=== PATIENT | male | born 1945 | race Caucasian/White ===

== ENCOUNTER 2022-03-11 10:11 | Emergency (ER) | payer OTHER ==
--- OUTSIDE RECORDS SUMMARY | 2022-03-11 10:13 | XMS REPORT | Continuity of Care Document ---
:1945 Author Organization [facility] t Address [address] [place] [address] Care Team Providers Name Role Phone Dann Mims MD Primary Care Physician JOSE M COLE Attending Clinician Unavailable JASBIR JUSTIN Attending Clinician Unavailable MARKY AUGUSTINE Attending Clinician Unavailable Problems Condition Condition Condition Status Onset Resolution Last Treating Co mments Source Name Details Category Date Date Treatment Clinician Date No known No known Disease Metho di active active st problems problems Hospit a l Allergies, Adverse Reactions, Alerts This patient has no known allergies or adverse reactions. Family History Family Member Diagnosis Comments Start Date Stop Date Source Family member Colon cancer [facility] Family member Colon polyps [facility] Social History Social Habit Start Date Stop Date Quantity Comments Source History of Current smoker [facility] Alcohol intake 2020-06-08 2020-06-08 Ex-drinker [facility] (finding[facility] Tobacco use and 2020-03-01 2020-03-01 Smokeless tobacco [facility] 00:[facility]:00 non-user Hospital Alcohol Comment 2020-03-01 2020-03-01 off an on use [facility] 00:[facility] 00:00:00 (currently off) Hospital Sex Assigned At [birth year] M [facility] 00:[facility] Smoking Status Start Date Stop Date Source Ex-smoker 2020-03-01 00:00:00 2020-03-01 [facility]:00:[facility] Medications Ordered Filled Start Stop Current Ordering Indication Dosage Frequency Signature Comments Components Source Medication Medication Date Date Medication? Clinician (SIG) Name Name ciprofloxac Yes 500mg QD Take 500 M [facility] in (CIPRO) 3-[address] 500 MG 16:14: mouth Hospita tablet 38 daily. l ascorbic Yes QD Take by [facility] acid, 3-[address] vitamin C, 16:13: daily. Hospi ta (vitamin C) 40 l 1000 MG tablet aspirin Yes [facility] (ASPIR-81 3-08 st ORAL) 16:13: Hospita 40 l buPROPion Yes 300mg QD Take 300 [facility] HBr 348 mg 3-[address] tablet 16:13: mouth [facility] extended 40 daily. l release 24 hr cetirizine Yes [facility] (ZyrTEC) 10 3-08 st MG tablet 16:13: Hospita 40 l multivit-mi Yes Method i n/FA/lycope 3-08 st n/lutein 16:13: Hospita (CENTRUM 40 l SILVER MEN ORAL) zinc Yes [facility] gluconate 3-08 st 50 mg 16:13: Hospita tablet 40 l zolpidem Yes 10mg QD Take 10 mg Met hodi (AMBIEN) 10 3-[address] mg tablet 16:13: nightly as Ho spita 40 needed. l propranoloL 2019-04 Yes TAKE 1 TO M ethodi (INDERAL) 2-[address] 10 MG 00:00: BY MOUTH Hospita tablet 00 UP TO 3 l TIMES A DAY NEEDED FOR TREMORS ezetimibe 2019-04 Yes 10mg QD Take 10 mg Me thodi (ZETIA) 10 1-[address] mg tablet 00:00: daily. Hospit a 00 l rosuvastati 2019-04 Yes TAKE 1 Meth kelly n (CRESTOR) 1-[address] 5 mg tablet 00:00: MOUTH Hospi ta 00 DAILY IN l EVENING carvediloL 2019-04 Yes 25mg Q.5D Take 25 mg M ethodi (COREG) 25 0-[address] MG tablet 00:00: (two) Hospita 00 times a l day. finasteride 2019-04 Yes 5mg QD Take 5 mg M [facility]i (PROSCAR) 5 0-[address] mg tablet 00:00: daily. Hospit a 00 l Procedures This patient has no known procedures. Plan of Care Planned Activity Planned Date Details Comments Source Future Scheduled 2022-02-01 HEPATITIS B VACCINES Met [facility] Test 20:31:51 (1 of 3 - 3-dose series) [code = HEPATITIS B VACCINES (1 of 3 - 3-dose series)] Future Scheduled 2022-02-01 COVID-19 VACCINE (#1) [facility] Test 20:31:51 [code = COVID-19 VACCINE (#1)] Future Scheduled 2022-02-01 Hepatitis C screening [facility] Test 20:31:51 (procedure) [code = 738791198] Future Scheduled 2022-02-01 COLONOSCOPY SCREENING [facility] Test 20:31:51 [code = COLONOSCOPY SCREENING] Future Scheduled 2022-02-01 SHINGLES VACCINES (1 Met [facility] Test 20:31:51 of 2) [code = SHINGLES VACCINES (1 of 2)] Future Scheduled 2022-02-01 65+ P[facility]UMOCOCCAL [facility] Test 20:31:51 VACCINE (1 - PCV) [code = 65+ PNEUMOCOCCAL VACCINE (1 - PCV)] Future Scheduled 2022-02-01 INFLUENZA VACCINE [facility] Test 20:31:51 [code = INFLUENZA VACCINE] Encounters Start End Encounter Admission Attending Care Care Encounter Source Date/Time Date/Time Type Type Clinicians Facility Department ID 2020-08-19 2020-08-19 Outpatient ERGUN, [facility] [id number] [place] 00:00:00 00:00:[address] [place] [address] 2020-06-08 2020-06-08 Outpatient [facility] [id number] [place] 00:00:00 00:00:[address] 2020-06-04 2020-06-04 Emergency BOYINDIRADIGA [facility] [id number] [place] 00:00:00 00:00:00 [place], [address] 2020-03-01 2020-03-01 Outpatient MARKY AUGUSTINE [facility] [id number] [place] 00:00:00 00:00:[address] Results This patient has no known results.
[2022-03-11] MEDS ORDERED: ASPIRIN 81 MG CHEWABLE TABLET ONE (10:29)
[2022-03-11 11:05] LABS: Absolute Lymphocytes (CBC) 1.4 K/uL (0.7-4.9); Hematocrit 40.2 % (39.6-49.0); Lymphocytes % 29.2 % (15.3-44.8); MPV 7.9 fL (7.6-11.3); RBC Red Blood Cell Count 4.18 M/uL (4.33-5.43)
[2022-03-11 11:09] LABS: Protime INR 1.06
[2022-03-11 11:22] LABS: Albumin 3.9 g/dL (3.4-5.0); Bilirubin Direct 0.1 mg/dL (0-0.2); Bilirubin Total 0.4 mg/dL (0.2-1.0); Magnesium 2.2 mg/dL (1.6-2.4); Potassium 3.8 mmol/L (3.5-5.1); Protein, Total 6.9 g/dL (6.4-8.2); Troponin High Sensitivity 6.5 pg/mL (<58.9)
--- NOTE | 2022-03-11 11:26 | RAD REPORT ---
EXAM DESCRIPTION: RAD - Chest Single View - 03/11/2022 11:18 am CLINICAL HISTORY: CHEST PAIN COMPARISON: none FINDINGS: Lines: None. Lungs: No evidence of edema or pneumonia. Pleural: No significant pleural effusions or pneumothorax. Cardiac: The heart size is within normal limits. Mediastinum: Within normal limits. Bones: No acute fractures. Other: None IMPRESSION: No acute cardiopulmonary disease.
--- NOTE | 2022-03-11 12:39 | ER ---
Nurse's Notes [facility] Name: Joe Grayson Age: 76 yrs Sex: Male : 1945 Arrival Date: 03/11/2022 Time: 10:12 Bed 24 Private MD: Bill Mims C Diagnosis: Chest pain, unspecified Presentation: 03/11 10:18 Chief complaint: Patient states: my is on 2nd floor and i was listening to the doctor and i started feeling dizzy and sweaty and a mild pain in my chest and now I have a pain in my abdomen , my 's been in the hospital for a couple days and I havent been eating much. Coronavirus screen: At this time, the client does not indicate any symptoms associated with coronavirus-19. Ebola Screen: Patient negative for fever greater than or equal to 101.5 degrees Fahrenheit, and additional compatible Ebola Virus Disease symptoms Patient denies exposure to infectious person. Patient denies travel to an Ebola-affected area in the 21 days before illness onset. No symptoms or risks identified at this time. Initial Sepsis Screen: Does the patient meet any 2 criteria? No. Patient's initial sepsis screen is negative. Does the patient have a suspected source of infection? No. Patient's initial sepsis screen is negative. Risk Assessment: Do you want to hurt yourself or someone else? Patient reports no desire to harm self or others. Onset of symptoms was March 11, 2022. 10:18 Method Of Arrival: Wheelchair 10:18 Acuity: OFE 3 iw Historical: - Allergies: 10:20 No Known Allergies; iw - PMHx: 10:20 Hyperlipidemia; Hypertension; Depressive disorder; iw - PSHx: 10:20 cataract; iw - Immunization history:: Client reports receiving the 2nd dose of the Covid vaccine. - Social history:: Smoking status: Patient/guardian denies using tobacco, the patient reports quitting approximately 30 years ago. - Family history:: not pertinent. Screenin:38 Abuse screen: Denies threats or abuse. Denies injuries from another. Nutritional ko1 screening: No deficits noted. Tuberculosis screening: No symptoms or risk factors identified. Fall Risk None identified. Assessment: 10:38 General: Appears in no apparent distress. comfortable, Behavior is calm, cooperative, ko1 appropriate for age, Denies fever, feeling ill, fatigue, chills. Pain: Complains of pain in abdomen Pain does not radiate. Pain began suddenly. Neuro: No deficits noted. Cardiovascular: Reports having chest pain earlier but now its more abdominal Denies chest pain. Respiratory: No deficits noted. GI: Reports upper abdominal pain. : No deficits noted. EENT: No deficits noted. Derm: No deficits noted. Musculoskeletal: No deficits noted. Vital Signs: 10:18 BP 110 / 52; Pulse 51; Resp 16; Temp 97.0; Pulse Ox 100% on R/A; Weight 74.84 kg; iw Height 5 ft. 8 in. (172.72 cm); Pain 3/10; 10:38 BP 124 / 69; Pulse 54; Resp 18; Pulse Ox 97% on R/A; ko1 11:47 BP 124 / 75; Pulse 59; Pulse Ox 100% ; ko1 12:27 BP 137 / 64; Pulse 57; Resp 16; Pulse Ox 99% on R/A; ko1 10:18 Body Mass Index 25.09 (74.84 kg, 172.72 cm) iw Vitals: 10:38 Cardiac Rhythm Assessment Sinus lópez. ko1 ED Course: 10:12 Patient arrived in ED. am2 10:12 Bill Mims MD is Private Physician. am2 10:18 Saad Rod MD is Attending Physician. rt 10:20 Triage completed. iw 10:21 Arm band placed on. iw 10:23 Razia Louis, RN is Primary Nurse. ko1 10:38 Patient has correct armband on for positive identification. Placed in gown. Bed in low ko1 position. Call light in reach. Side rails up X 1. Client placed on continuous cardiac and pulse oximetry monitoring. NIBP monitoring applied. gasoline service attendant on. Door closed. Noise minimized. Lights dimmed. Warm blanket given. 10:38 Patient maintains SpO2 saturation greater than 95% on room air. ko1 10:55 Missed attempt(s): 20 gauge in left antecubital area. rs5 11:00 Inserted saline lock: 20 gauge in right antecubital area, using aseptic technique. ko1 Blood collected. 11:03 Basic Metabolic Panel Sent. ko1 11:03 CBC with Diff Sent. ko1 11:03 LFT's Sent. ko1 11:03 Magnesium Sent. ko1 11:03 NT PRO-BNP Sent. ko1 11:03 PT-INR Sent. ko1 11:03 Troponin HS Sent. ko1 11:20 XRAY Chest (1 view) In Process Unspecified. EDMS 12:27 No provider procedures requiring assistance completed. ko1 12:38 Bill Mims MD is Referral Physician. rt 12:48 IV discontinued, intact, bleeding controlled, No redness/swelling at site. Pressure ko1 dressing applied. Administered Medications: 10:33 Drug: Aspirin Chewable Tablet 324 mg Route: PO; ko1 Medication: 11:47 VIS not applicable for this client. ko1 Outcome: 12:39 Discharge ordered by MD. rt 12:48 Discharged to home ambulatory. ko1 12:48 Condition: stable 12:48 Discharge instructions given to patient, Instructed on discharge instructions, follow up and referral plans. Demonstrated understanding of instructions, follow-up care. 12:49 Patient left the ED. ko1 Signatures: Dispatcher [employer] EDMS Ameena Masterson RN RN iw Cesilia Teague am2 Razia Louis RN RN ko1 Saad Rod MD MD rt Ryan Aquino rs5
--- NOTE | 2022-03-11 12:39 | EDPHYS ---
Physician Documentation [facility] Name: Joe Grayson Age: 76 yrs Sex: Male : 1945 Arrival Date: 03/11/2022 Time: 10:12 Bed 24 Private MD: Bill Mims C ED Physician Saad Rod HPI: 03/11 12:01 This 76 yrs old Male presents to ER via Wheelchair with complaints of Chest Pain, rt Dizziness, sweats. 12:01 The patient or guardian reports chest pain that is located primarily in the substernal rt area. Onset: acutely, just prior to arrival. The pain does not radiate. Associated signs and symptoms: Pertinent positives: diaphoresis, dizziness, nausea. The chest pain is described as a pressure. Duration: The patient or guardian reports a single episode, that is still ongoing, but improving. Modifying factors: The symptoms are alleviated by nothing. the symptoms are aggravated by nothing. Severity of pain: At its worst the pain was moderate. Historical: - Allergies: 10:20 No Known Allergies; iw - PMHx: 10:20 Hyperlipidemia; Hypertension; Depressive disorder; iw - PSHx: 10:20 cataract; iw - Immunization history:: Client reports receiving the 2nd dose of the Covid vaccine. - Social history:: Smoking status: Patient/guardian denies using tobacco, the patient reports quitting approximately 30 years ago. - Family history:: not pertinent. ROS: 12:01 Constitutional: Negative for fever, chills, and weight loss, Eyes: Negative for injury, rt pain, redness, and discharge, ENT: Negative for injury, pain, and discharge, Neck: Negative for injury, pain, and swelling, Respiratory: Negative for shortness of breath, cough, wheezing, and pleuritic chest pain, MS/Extremity: Negative for injury and deformity, Skin: Negative for injury, rash, and discoloration, Neuro: Negative for headache, weakness, numbness, tingling, and seizure, Psych: Negative for depression, anxiety, suicide ideation, homicidal ideation, and hallucinations. 12:01 Cardiovascular: Positive for chest pain, Negative for edema. 12:01 Abdomen/GI: Positive for nausea, Negative for vomiting. 12:01 Skin: Positive for diaphoresis, Negative for cellulitis. Exam: 11:49 ECG was reviewed by the Attending Physician. rt 12:01 Constitutional: This is a well developed, well nourished patient who is awake, alert, rt and in no acute distress. Head/Face: Normocephalic, atraumatic. Eyes: Pupils equal round and reactive to light, extra-ocular motions intact. Lids and lashes normal. Conjunctiva and sclera are non-icteric and not injected. Cornea within normal limits. Periorbital areas with no swelling, redness, or edema. ENT: Nares patent. No nasal discharge, no septal abnormalities noted. Tympanic membranes are normal and external auditory canals are clear. Oropharynx with no redness, swelling, or masses, exudates, or evidence of obstruction, uvula midline. Mucous membranes moist. Neck: Trachea midline, no thyromegaly or masses palpated, and no cervical lymphadenopathy. Supple, full range of motion without nuchal rigidity, or vertebral point tenderness. No Meningismus. Chest/axilla: Normal chest wall appearance and motion. Nontender with no deformity. No lesions are appreciated. Cardiovascular: Regular rate and rhythm with a normal S1 and S2. No gallops, murmurs, or rubs. Normal PMI, no JVD. No pulse deficits. Respiratory: Lungs have equal breath sounds bilaterally, clear to auscultation and percussion. No rales, rhonchi or wheezes noted. No increased work of breathing, no retractions or nasal flaring. Abdomen/GI: Soft, non-tender, with normal bowel sounds. No distension or tympany. No guarding or rebound. No evidence of tenderness throughout. Skin: Warm, dry with normal turgor. Normal color with no rashes, no lesions, and no evidence of cellulitis. MS/ Extremity: Pulses equal, no cyanosis. Neurovascular intact. Full, normal range of motion. Neuro: Awake and alert, GCS 15, oriented to person, place, time, and situation. Cranial nerves II-XII grossly intact. Motor strength 5/5 in all extremities. Sensory grossly intact. Cerebellar exam normal. Normal gait. Psych: Awake, alert, with orientation to person, place and time. Behavior, mood, and affect are within normal limits. Vital Signs: 10:18 BP 110 / 52; Pulse 51; Resp 16; Temp 97.0; Pulse Ox 100% on R/A; Weight 74.84 kg; iw Height 5 ft. 8 in. (172.72 cm); Pain 3/10; 10:38 BP 124 / 69; Pulse 54; Resp 18; Pulse Ox 97% on R/A; ko1 11:47 BP 124 / 75; Pulse 59; Pulse Ox 100% ; ko1 12:27 BP 137 / 64; Pulse 57; Resp 16; Pulse Ox 99% on R/A; ko1 10:18 Body Mass Index 25.09 (74.84 kg, 172.72 cm) iw MDM: 10:23 Patient medically screened. rt 17:37 Differential diagnosis: acute myocardial infarction, acute pericarditis, pericarditis, rt pneumonia, pneumothorax, pulmonary embolus, thoracic aortic disection. HEART Score: History: Highly Suspicious (2), ECG: Normal (0), Age: > or = 65 years (2), Risk Factors: 1 or 2 risk factors (1), Troponin: < or = 1 x Normal Limit (0), Total Score = 5. Data reviewed: vital signs, nurses notes, lab test result(s), EKG, radiologic studies. ED course: Presents to the ED with an acute onset of chest pain, dyspnea, diaphoresis. The symptoms are very concerning for an acute coronary syndrome. Patient has no acute ischemic changes on EKG, negative troponin. Given her risk factors and after discussion with the patient's primary care, I strongly recommended the patient be admitted to the hospital. Patient refuses stating that he wishes to go upstairs. His was hospitalized. Patient understands risks of leaving clued a missed cardiac event. He has decision-making capacity and has capacity to refuse admission. Patient to follow-up as an outpatient, return precautions were given for worsening symptoms or if he changes his mind.. 03/11 10:18 Order name: Basic Metabolic Panel; Complete Time: 11:39 snw 03/11 10:18 Order name: CBC with Diff; Complete Time: 11:48 snw 03/11 10:18 Order name: LFT's; Complete Time: 11:39 snw 03/11 10:18 Order name: Magnesium; Complete Time: 11:39 snw 03/11 10:18 Order name: NT PRO-BNP; Complete Time: 11:39 snw 03/11 10:18 Order name: PT-INR; Complete Time: 11:39 snw 03/11 10:18 Order name: Troponin HS; Complete Time: 11:39 snw 03/11 10:18 Order name: XRAY Chest (1 view); Complete Time: 11:39 snw 03/11 10:18 Order name: EKG; Complete Time: 10:18 snw 03/11 10:18 Order name: Cardiac monitoring; Complete Time: 10:27 snw 03/11 10:18 Order name: EKG - Nurse/Tech; Complete Time: 10:33 snw 03/11 10:18 Order name: IV Saline Lock; Complete Time: 11:03 snw 03/11 10:18 Order name: Labs collected and sent; Complete Time: 11: snw 03/11 10:18 Order name: O2 Per Protocol; Complete Time: : snw 03/11 10:18 Order name: O2 Sat Monitoring; Complete Time: : snw EC:49 Rate is 54 beats/min. Rhythm is regular, Sinus bradycardia with No ectopy. QRS Wilson is rt Normal. UT interval is normal. QRS interval is normal. QT interval is normal. No Q waves. T waves are Normal. No ST changes noted. Clinical impression: Normal ECG. Interpreted by me. Administered Medications: 10:33 Drug: Aspirin Chewable Tablet 324 mg Route: PO; ko1 Disposition Summary: 03/11/22 12:39 Discharge Ordered Location: Home rt Problem: new rt Symptoms: are resolved rt Condition: Fair rt Diagnosis - Chest pain, unspecified rt Followup: rt - With: Bill Mims MD - When: 1 - 2 days - Reason: Discharge Instructions: - Discharge Summary Sheet rt - Nonspecific Chest Pain, Adult rt Forms: - Medication Reconciliation Form rt - Thank You Letter rt - Antibiotic Education rt - Prescription Opioid Use rt Signatures: Dispatcher [employer] EDJazz Arreguin, NEELAM-C SANFORIZER-Csnw Ameena Masterson, RN Razia Rocha RN RN ko1 Saad Rod MD MD rt
[2022-03-11 19:24] VITALS: TEMP 97
[2022-03-11 19:27] VITALS: BP 137/64; O2SAT 99
--- NOTE | 2022-03-13 15:02 | EKG ---
Test Date: 2022-03-11 Test Time: 10:32:29 Collections Curator: SENTHIL MEASUREMENT RESULTS: Intervals: Rate: 54 NH: 158 QRSD: 86 QT: 450 QTc: 426 [place]: P: 43 NH: 158 QRS: 72 T: 45 INTERPRETIVE STATEMENTS: Sinus bradycardia Otherwise normal ECG Compared to ECG 11/18/2004 14:20:00 Sinus rhythm no longer present Electronically Signed On 03-13-22 14:57:20 MANAGER SOLAR by Carlyle Steel
== END 2022-03-11 12:49 | disposition home or self-care (01) ==
LOC: ER 10:11
DX: R07.89 Other chest pain (principal); R42 Dizziness and giddiness; I10 Essential (primary) hypertension
CPT/HCPCS: 36415; 71045; 80048; 80076; 83735; 83880; 84484; 85025; 85610; 93005; 99285